=== PATIENT | female | born 1980 | race Caucasian/White ===

== ENCOUNTER 2022-11-04 09:13 | Day surgery (SDC) | payer BC ==
[2022-11-04] MEDS ORDERED: Acetaminophen 500 MG TAB ONE (09:39)
[2022-11-04] MEDS ORDERED: Iron Sucrose Complex 500 MG in Sodium Chloride 0.9% 250 ML 250 ML IVPB SCH (09:45)
[2022-11-04] MEDS ORDERED: Acetaminophen 500 MG TAB PO SCH (09:45)
== END 2022-11-04 14:15 | disposition home or self-care (01) ==
LOC: CSHSDC/OP 09:13
PROVIDERS: ATTEND Obstetrics & Gynecology
DX: O99.013 Anemia complicating pregnancy, third trimester (principal); D64.9 Anemia, unspecified; Z3A.00 Weeks of gestation of pregnancy not specified
CPT/HCPCS: J1756; J7050